=== PATIENT | female | born 1995 | race Caucasian/White ===

== ENCOUNTER 2016-09-18 19:58 | Emergency (ER) | payer MEDICARE | END 2016-09-18 21:16 | disposition home or self-care (01) | LOC: ER 19:58 | DX: J18.9 Pneumonia, unspecified organism (principal); J40 Bronchitis, not specified as acute or chronic; I10 Essential (primary) hypertension; Z87.898 Personal history of other specified conditions; Z86.79 Personal history of other diseases of the circulatory system; Z79.899 Other long term (current) drug therapy; Z88.0 Allergy status to penicillin; Z88.1 Allergy status to other antibiotic agents | CPT/HCPCS: 96372; 99282-25 ==